=== PATIENT | male | born 1995 | race Caucasian/White ===

== ENCOUNTER 2017-04-07 09:10 | Emergency (ER) | END 2017-04-07 10:00 | disposition home or self-care (01) | DX: H81.10 Benign paroxysmal vertigo, unspecified ear (principal); J20.8 Acute bronchitis due to other specified organisms; R40.2412 Glasgow coma scale score 13-15, at arrival to emergency department ==

== ENCOUNTER 2018-10-01 17:08 | Emergency (ER) | payer BC ==
[~2018-10-01] VITALS: Ht 170.2 cm; Wt 56.8 kg
[~2018-10-01 17:08] MED LIST: ALBU18HF INHALATION; MECL12.574 PO
[2018-10-01 17:19] VITALS: Ht 170.2 cm; Wt 56.8 kg
[2018-10-01] MEDS ORDERED: SOD CHLORIDE 0.9% 500 ML IV STA (17:31)
[2018-10-01] MEDS ORDERED: ONDANSETRON (ODT) 4 MG TAB ODT STA (17:31)
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
[2018-10-01] MEDS ORDERED: MECLIZINE 12.5 MG TAB PO ONE (18:00)
[2018-10-01] MEDS ORDERED: LORAZEPAM 1 MG TAB PO ONE (18:00)
[2018-10-01] MEDS ORDERED: LORA-441 PO (19:48)
[2018-10-01] MEDS ORDERED: MECL12.574 PO (19:48)
[2018-10-01] MEDS ORDERED: ONDA4TAB8 PO (19:48)
[2018-10-01 20:09] VITALS: BP 136/95; PULSE 75; RESP 20
== END 2018-10-01 20:10 | disposition home or self-care (01) ==
LOC: FTE 17:08
DX: H81.10 Benign paroxysmal vertigo, unspecified ear (principal); I10 Essential (primary) hypertension
CPT/HCPCS: 70450; 80053; 81001; 85025; 93005; 99285; J7040; 81003